=== PATIENT | female | born 1990 | race Caucasian/White ===

== ENCOUNTER 2016-07-11 20:51 | Emergency (ER) | payer MEDICAID, MEDICARE ==
--- NOTE | 2016-07-23 16:08 | ER ---
ADMIT: 07/11/2016 RM/LOC: ER [facility] MR#: [id number] [address] [id number] CYNTHIA MEEKSCA Jeannette [address] [address] NO PHONE Emergency Room Report SEX: F AGE: 26 : 1990 DATE: 07/11/2016 The patient is a 26-year-old, who presents to the emergency room complaining of two days of hurting when she takes a deep breath and hurts in her left scapula. She is very anxious, very hyperactive, and points to the left shoulder area. She is . This is her first . She is seven months . Denies any nausea, headache, fever, or vomiting. She has a past medical history of bronchitis. She smokes a half a pack a day. She does have some wheezes upper respiratory. Vitals within normal limits. Not tachycardic. She stated that when she takes a deep breath the area of the left scapula is quite tender. She was given two nebulizer treatments. Labs; UA was normal. Back pain, given a Tylenol. Albuterol inhaler treatment twice. She is advised to follow up with Dr. Pabon. The only medication she is supposed to take is Tylenol. Dr. Pabon follow up. The two breathing treatments were very helpful. She was released with an instructions of returning to the ER if symptoms worsen. Her CBC is within normal limits. The urine was normal as well. No culture and sensitivity took place. The patient discharged in good standing. JONES Corral / Jaime Clemens MD / jazminel JOB #: [id number] CC: Brian Villanueva MD, Attending Physician Myrtle Pabon MD, Family Physician
== END 2016-07-12 01:50 | disposition home or self-care (01) ==
LOC: ER 20:51
DX: O99.89 Other specified diseases and conditions complicating pregnancy, childbirth and the puerperium (principal); M54.9 Dorsalgia, unspecified; O99.333 Smoking (tobacco) complicating pregnancy, third trimester; F17.210 Nicotine dependence, cigarettes, uncomplicated

== ENCOUNTER 2016-09-23 16:11 | Emergency (ER) | payer MEDICARE, MEDICAID ==
--- NOTE | 2016-10-01 21:19 | ER ---
ADMIT: 09/23/2016 RM/LOC: ER [facility] MR#: [id number] [address] [address] [address] [id number] Emergency Room Report SEX: F AGE: 26 : 1990 DATE: 09/23/2016 ADDENDUM: CHIEF COMPLAINT: Combative in snf. HISTORY OF PRESENT ILLNESS: This is a 26-year-old, who was picked up for yelling and disturbing the peace. She was screaming in the snf uncontrollably, trying to hit her head on the floor, ambulance had picked her up. They gave her Haldol and Ativan on the way to the ER. Now, she is calm, alert, and appropriate. I am prescribing her Vistaril, Cogentin, Depakote, Zoloft, and Haldol as she was prescribed on 09/03/2016 and 09/20/2016. She will take these medications in snf, and she will follow up as needed. CLINICAL IMPRESSION: 1. Schizophrenia, uncompliant with medications. 2. Methamphetamine abuse. JONES Sena / Richie Avilez MD / modl JOB #: [id number] CC: Richie Avilez MD, Attending Physician Mikie Dumont MD, Family Physician
== END 2016-09-23 17:20 | disposition home or self-care (01) ==
LOC: ER 16:11
DX: F20.9 Schizophrenia, unspecified (principal); F15.10 Other stimulant abuse, uncomplicated; F32.9 Major depressive disorder, single episode, unspecified; F17.210 Nicotine dependence, cigarettes, uncomplicated; Z79.899 Other long term (current) drug therapy